=== PATIENT | male | born 1950 | race Caucasian/White ===

== ENCOUNTER 2018-10-24 10:37 | Emergency (ER) | payer MEDICARE ==
[~2018-10-24] VITALS: Ht 172.7 cm; Wt 113.6 kg
[~2018-10-24 10:37] MED LIST: ASPI325T5 PO; ATOR1TAB19 PO; COLA100C5 PO; FLOM0.4C39 PO; HYDR-3715 PO; LEVA750T7 PO; METF500T13 PO; MIRA3350 PO; MIRT1TAB20 PO; NAPR500T6 PO; NEOSOPO TOP; PARO40TA2 PO; PROAAER10 INH; SAVE100T PO; SOMA350T PO; TAPE100T2 PO; UROX10TA10 OR
[2018-10-24] MEDS ORDERED: ADACEL/BOOSTRIX VACCINE (DIPHTH/PERTUSS/ACELL/TETANUS)0.5ML SYR (90715) IM ONE (11:15)
[2018-10-24] MEDS ORDERED: NS 1,000 ML IV ONE (11:15)
[2018-10-24 11:38] LABS: BASO % 0.4 % (0.0-1.0); EOS # 0.1 10^3/uL (0.0-0.50); EOS % 2.1 % (0.0-3.0); HEMATOCRIT 41.6 % (42.0-52.0); HEMOGLOBIN 14.1 g/dl (13.5-17.5); LYMPH # 1.2 10^3/uL (1.5-4.5); LYMPH % 24.1 % (24.0-44.0); MEAN CORPUSCULAR HEMOGLOBIN 31.1 pg (27.0-33.0); MEAN CORPUSCULAR HGB CONC 33.9 g/dl (32.0-36.5); MEAN CORPUSCULAR VOLUME 91.8 fl (80.0-96.0); MONO # 0.5 10^3/uL (0.0-0.8); MONO % 10.7 % (0.0-5.0); NEUTROPHILS % 62.5 % (36.0-66.0); PLATELET COUNT, AUTOMATED 213 10^3/uL (150-450); RED BLOOD COUNT 4.53 10^6/uL (4.30-6.10); WHITE BLOOD COUNT 4.8 10^3/uL (4.0-10.0)
[2018-10-24 11:48] LABS: INR 1.07
[2018-10-24 11:49] LABS: PARTIAL THROMBOPLASTIN TIME 28.1 SECONDS (25.4-37.6)
--- NOTE | 2018-10-24 11:53 | REP ---
PORTABLE CHEST: AP supine film of the chest was performed. There is no pneumothorax or infiltrate. Heart appears enlarged. Vasculature is appears prominent which may be due to supine position. There is mild elevation of the right hemidiaphragm with mild bibasilar fibroatelectatic change. IMPRESSION: Cardiomegaly without evidence of pneumothorax or infiltrate. Electronically Signed by Micha Goldman MD 10/27/2018 01:31 P
[2018-10-24 12:16] LABS: ALT/SGPT 31 U/L (12-78); AMYLASE 39 U/L (25-115); BILIRUBIN,DIRECT < 0.1 MG/DL (0.0-0.2); BILIRUBIN,TOTAL 0.4 MG/DL (0.2-1.0); BLOOD UREA NITROGEN 21 MG/DL (7-18); CALCIUM LEVEL 8.9 MG/DL (8.8-10.2); CARBON DIOXIDE LEVEL 28 MEQ/L (21-32); CHLORIDE LEVEL 107 MEQ/L (98-107); CREATININE FOR GFR 0.84 MG/DL (0.70-1.30); GLOMERULAR FILTRATION RATE > 60.0 (>49); GLUCOSE, FASTING 91 MG/DL (70-100); LIPASE 122 U/L (73-393); POTASSIUM SERUM 4.1 MEQ/L (3.5-5.1); SODIUM LEVEL 138 MEQ/L (136-145); TOTAL PROTEIN 7.4 GM/DL (6.4-8.2)
[2018-10-24] MEDS ORDERED: ISOVUE-370 76% 100ML VIAL (Q9967) As Ordered ONE (12:22)
--- NOTE | 2018-10-24 13:21 | REP ---
CT ABDOMEN AND PELVIS WITH IV CONTRAST: TECHNIQUE: Axial contrast enhanced images from the lung bases to the pubic symphysis using 100 mL Isovue 370 intravenous contrast material with multiplanar reformations. Visualized lung bases demonstrate mild bibasilar dependent atelectatic changes. Several cysts are seen in the liver. The largest is inferiorly located in the right lobe of the liver measuring approximately 4.9 cm in maximum diameter. Gallbladder is grossly unremarkable. Spleen, adrenals, pancreas, and kidneys are unremarkable. There is a superficial soft tissue wound involving the left anterior chest wall and left upper abdominal wall. There is no extension into left pleural space or lung and no intraperitoneal extension. No free intraperitoneal air or fluid is seen. There is scattered atherosclerotic calcification of the abdominal aorta without aneurysm. No adenopathy is seen. No bowel abnormality is seen. There is a small umbilical hernia containing fat. No pelvic mass is seen. There are degenerative changes of the spine. IMPRESSION: Superficial soft tissue wound anterior left chest wall and adjacent left upper abdominal wall with no extension into left pleural space, but no intraperitoneal extension. No free air or free fluid in the abdomen or pelvis. Small umbilical hernia contains fat. Electronically Signed by Micha Goldman MD 10/27/2018 01:36 P
[2018-10-24] MEDS ORDERED: LIDOCAINE W/EPINEPHRINE 1% 20ML VIAL SC ONE (13:30)
[2018-10-24] MEDS ORDERED: NEOSPORIN OINT 0.9 GM PKT (FLOOR STOCK) As Ordered ONE (15:14)
[2018-10-24] MEDS ORDERED: BACI500O59 EX (15:18)
[2018-10-24] MEDS ORDERED: NEOSPORIN OINT 0.9 GM PKT (FLOOR STOCK) TOP ONE (15:30)
[2018-10-24 15:43] VITALS: BP 122/75
== END 2018-10-24 15:49 | disposition home or self-care (01) ==
LOC: M ED 10:37
DX: S31.119A Laceration without foreign body of abdominal wall, unspecified quadrant without penetration into peritoneal cavity, initial encounter (principal); W27.0XXA Contact with workbench tool, initial encounter; Y92.9 Unspecified place or not applicable; Y93.9 Activity, unspecified; Y99.9 Unspecified external cause status; I51.7 Cardiomegaly; K42.9 Umbilical hernia without obstruction or gangrene; E78.00 Pure hypercholesterolemia, unspecified; I10 Essential (primary) hypertension; F32.9 Major depressive disorder, single episode, unspecified; Z79.82 Long term (current) use of aspirin; Z79.899 Other long term (current) drug therapy
CPT/HCPCS: 36415; 71045; 74177; 80048; 80076; 82150; 83690; 85025; 85610; 85730; 86850; 86900; 86901; 90471; 90715; 96360; 96361; 99284; Q9967

== ENCOUNTER → 2020-05-24 | Outpatient (REF) | payer MEDICARE ==
[~2020-05-24] MED LIST changes: +BACI500O59 EX
== END ==
LOC: M SFHCADAM 14:31
PROVIDERS: ATTEND Urology
DX: N32.0 Bladder-neck obstruction (principal)
CPT/HCPCS: G0103; G0463

== ENCOUNTER → 2021-04-25 | Outpatient (REF) | payer MEDICARE ==
[2021-04-26 12:50] LABS: PERCENT SATURATION 18.5 % (19.7-50.0)
== END ==
LOC: M LAB REF 11:41
PROVIDERS: ATTEND Internal Medicine
DX: G25.81 Restless legs syndrome (principal); D50.9 Iron deficiency anemia, unspecified

== ENCOUNTER 2023-07-04 08:40 | Day surgery (SDC) | payer MEDICARE ==
[~2023-07-04] VITALS: Ht 175.3 cm; Wt 113.7 kg
[~2023-07-04 08:40] MED LIST changes: +ASPI325T57 PO; +CITA40TA7 PO; +CLON0.5T2 PO; +LIDOCAINE 2% 100MG/5ML SDV (FOR ANES.) As Ordered ONE; +MIRT1TAB PO; +NS 1,000 ML IV ONE; +TAMS1CAP17 PO; +propofoL 200 MG/20 ML VIAL As Ordered ONE
[2023-07-04 11:18] VITALS: BP 159/75; TEMP 96.4; O2SAT 98
== END 2023-07-04 11:27 | disposition home or self-care (01) ==
LOC: M OPP 08:40
PROVIDERS: ATTEND Surgery
DX: Z12.11 Encounter for screening for malignant neoplasm of colon (principal); K63.5 Polyp of colon; K57.30 Diverticulosis of large intestine without perforation or abscess without bleeding; G47.30 Sleep apnea, unspecified; Z86.010 Personal history of colon polyps

== ENCOUNTER → 2023-10-02 | Outpatient (CLI) | payer MEDICARE ==
[~2023-10-02] MED LIST changes: -LIDOCAINE 2% 100MG/5ML SDV (FOR ANES.) As Ordered ONE; -NS 1,000 ML IV ONE; -propofoL 200 MG/20 ML VIAL As Ordered ONE
== END ==
LOC: M CARPUL 07:55
PROVIDERS: ATTEND Internal Medicine
DX: I71.20 Thoracic aortic aneurysm, without rupture, unspecified (principal)

== ENCOUNTER → 2024-07-30 | Outpatient (CLI) | payer MEDICARE ==
[~2024-07-30] MED LIST changes: +NAPR-1405 PO; -NAPR500T6 PO
== END ==
LOC: M RAD 11:31
PROVIDERS: ATTEND Physician Assistant Medical
DX: R05.9 Cough, unspecified (principal); R06.02 Shortness of breath; J98.4 Other disorders of lung; J91.8 Pleural effusion in other conditions classified elsewhere

== ENCOUNTER → 2024-09-14 | Outpatient (CLI) | payer MEDICARE | LOC: M WUC 08:51 | PROVIDERS: ATTEND Internal Medicine | DX: J90 Pleural effusion, not elsewhere classified (principal) ==

== ENCOUNTER → 2024-10-09 | Outpatient (CLI) | payer MEDICARE | LOC: M PLARAD 09:50 | PROVIDERS: ATTEND Internal Medicine | DX: G31.84 Mild cognitive impairment of uncertain or unknown etiology (principal) ==

== ENCOUNTER 2025-03-28 09:34 | Emergency (ER) | payer MEDICARE ==
[~2025-03-28] VITALS: Ht 175.3 cm; Wt 110.9 kg
[~2025-03-28 09:34] MED LIST changes: -FLOM0.4C39 PO; +TAMS-18 PO
[2025-03-28 11:09] LABS: VENOUS BASE EXCESS 1.5 (-2.0-2.0); VENOUS HCO3 27.5 MMOL/L (23.0-27.0); VENOUS O2 SATURATION 53.1 % (60.0-80.0); VENOUS PARTIAL PRESSURE CO2 48.5 mmHg (38.0-50.0); VENOUS PARTIAL PRESSURE O2 27.7 mmHg (30.0-50.0); VENOUS PH 7.372 UNITS (7.330-7.430); VENOUS STANDARD HCO3 24.6 MMOL/L; VENOUS TOTAL CO2 29.0 MMOL/L (24.0-28.0)
[2025-03-28 11:14] LABS: BASO # 0.0 10^3/uL (0.0-0.2); BASO % 0.4 % (0.0-1.0); EOS # 0.1 10^3/uL (0.0-0.5); EOS % 2.1 % (0.0-3.0); LYMPH # 0.9 10^3/uL (1.5-5.0); LYMPH % 17.0 % (24.0-44.0); MONO # 0.5 10^3/uL (0.0-0.8); MONO % 10.2 % (2.0-8.0); NEUTROPHILS # 3.6 10^3/uL (1.5-8.5); NEUTROPHILS % 70.1 % (36.0-66.0); PLATELET COUNT, AUTOMATED 177 10^3/uL (150-450)
[2025-03-28 11:35] LABS: OSMOLALITY SERUM 293.0 MOSM/KG (280-301)
[2025-03-28 11:38] LABS: ALT/SGPT 20.0 U/L (7.0-40); AST/SGOT 24.0 U/L (<34); CALCIUM LEVEL 9.0 MG/DL (8.3-10.6); CARBON DIOXIDE LEVEL 27.0 MMOL/L (20-31); CHLORIDE LEVEL 101.0 MMOL/L (98-107); CREATININE FOR GFR 0.91 MG/DL (0.70-1.30); GLOMERULAR FILTRATION RATE 87.4 (>42); POTASSIUM SERUM 3.9 MMOL/L (3.5-5.1); SODIUM LEVEL 136.0 MMOL/L (136-145)
[2025-03-28 14:26] VITALS: BP 130/86; TEMP 98.3; O2SAT 95
[2025-04-01 15:13] LABS: LYME TOTAL ANTIBODY CIA <= 0.90 Index (<=0.90)
== END 2025-03-28 14:34 | disposition home or self-care (01) ==
LOC: M ED 09:34
DX: S00.01XA Abrasion of scalp, initial encounter (principal); R41.3 Other amnesia; Y92.019 Unspecified place in single-family (private) house as the place of occurrence of the external cause; Y93.9 Activity, unspecified; Y99.9 Unspecified external cause status; W22.09XA Striking against other stationary object, initial encounter; I45.10 Unspecified right bundle-branch block; G47.33 Obstructive sleep apnea (adult) (pediatric); E78.00 Pure hypercholesterolemia, unspecified; F41.9 Anxiety disorder, unspecified; F32.A Depression, unspecified; Z79.1 Long term (current) use of non-steroidal anti-inflammatories (NSAID); Z79.899 Other long term (current) drug therapy

== ENCOUNTER → 2025-04-09 | Outpatient (CLI) | payer MEDICARE | LOC: M RAD 11:44 | PROVIDERS: ATTEND Physician Assistant Medical | DX: M25.561 Pain in right knee (principal); M25.562 Pain in left knee; M17.0 Bilateral primary osteoarthritis of knee ==